=== PATIENT | female | born 1960 | race Hispanic/Latino ===

== ENCOUNTER → 2018-04-13 | Outpatient (CLI) | payer OTHER ==
--- NOTE | 2018-04-24 09:55 | Diagnostic Imaging Report ---
#[id number] - [id number] #BILATERAL DIGITAL SCREENING MAMMOGRAM WITH CAD: 04/13/2018 CLINICAL: Routine screening. Routine screening. Comparison is made to exam dated: 08/10/2012 mammogram - [facility]. Current study contains 4 films. The tissue of both breasts is predominantly fatty. Current study was also evaluated with a Computer Aided Detection (CAD) system. There is a possible 5 mm oval mass in the left breast at 7 o'clock in the retroareolar region. There is a benign calcification in the left breast. No other significant masses, calcifications, or other findings are seen in either breast. IMPRESSION: INCOMPLETE: NEEDS ADDITIONAL IMAGING EVALUATION The possible 5 mm oval mass in the left breast is indeterminate. Additional views with possible ultrasound are recommended. The patient will be contacted by the Mammography Department to schedule this appointment. Nacho Wiley Jr., D.O. cw/:04/21/2018 07:11:02 Sr Community Manager: Alicia PERES(Adam)(M), [facility] letter sent: Additional Imaging Needed Mammogram BI-RADS: 0 Indeterminate
== END ==
LOC: MAMMO 08:33
PROVIDERS: ATTEND Family Medicine
DX: Z12.31 Encounter for screening mammogram for malignant neoplasm of breast (principal)
CPT/HCPCS: 77067

== ENCOUNTER → 2018-05-04 | Outpatient (CLI) | payer OTHER ==
--- NOTE | 2018-05-04 15:43 | Diagnostic Imaging Report ---
#[id number] - [id number] #UNILATERAL LEFT DIGITAL DIAGNOSTIC MAMMOGRAM WITH SPOT COMPRESSION: 05/04/2018 Comparison is made to exams dated: 04/13/2018 mammogram and 08/10/2012 mammogram - [facility]. Current study contains 3 films. The tissue of the left breast is predominantly fatty. Focal spot compression reveals a benign appearing lymph node in the left breast. No significant masses, calcifications, or other findings are seen in the breast. There has been no significant interval change. IMPRESSION: BENIGN There is no mammographic evidence of malignancy. A 1 year screening mammogram is recommended. The patient will be notified by letter of the results. Nacho Wiley Jr., D.O. cw/:05/04/2018 14:11:50 [employer] Supervisor: Alicia PERES(R)(M), [facility] letter sent: Normal Exam Mammogram BI-RADS: 2 Benign
== END ==
LOC: MAMMO 11:37
PROVIDERS: ATTEND Family Medicine
DX: N63.20 Unspecified lump in the left breast, unspecified quadrant (principal)

== ENCOUNTER → 2021-09-15 | Day surgery (SDC) | payer BC ==
[2021-09-14 12:35] LABS: BASOPHILS # (AUTO) 0.1 (0.0-0.1); BASOPHILS % 0.8 % (0.0-1.0); EOSINOPHILS # (AUTO) 0.4 (0.0-0.4); EOSINOPHILS % 5.8 % (0.0-6.0); HEMATOCRIT 43.9 % (34.2-44.1); HEMOGLOBIN 14.2 g/dL (12.0-16.0); LYMPHOCYTES # (AUTO) 2.4 (1.0-3.2); LYMPHOCYTES % 38.1 % (18.0-39.1); MEAN CORPUSCULAR HEMOGLOBIN 29.3 pg (28-32); MEAN CORPUSCULAR HGB CONC 32.3 g/dL (31-35); MEAN CORPUSCULAR VOLUME 90.5 fL (81-99); MONOCYTES # (AUTO) 0.4 (0.2-0.8); MONOCYTES % 6.4 % (4.4-11.3); NEUTROPHILS # (AUTO) 3.1 (2.1-6.9); NEUTROPHILS % 48.7 % (38.7-80.0); PLATELET COUNT 374 x10e3/uL (140-360); RED BLOOD COUNT 4.85 x10e6/uL (3.6-5.1); RED CELL DISTRIBUTION WIDTH 13.1 % (11.7-14.4)
[2021-09-14 13:02] LABS: ALBUMIN 3.8 g/dL (3.5-5.0); ALBUMIN/GLOBULIN RATIO 1.2 (0.8-2.0); ANION GAP 13.2 mmol/L (8-16); CALCIUM 9.5 mg/dL (8.4-10.2); CREATININE, SERUM 0.81 mg/dL (0.57-1.11); POTASSIUM 4.2 mmol/L (3.5-5.1)
[2021-09-15] VITALS (9 sets, daily range): BP systolic 129–169; BP diastolic 77–91
[~2021-09-15] MED LIST: ALPRAZOLAM 0.5 MG TAB ONE; ASPIRIN 325 MG TAB ONE; ASPIRIN EC81 MG PO; ATORVASTATIN CA20 MG PO; DIPHENHYDRAMINE HCL 25 MG CAP ONE; FENTANYL CITRATE/PF 100MCG/2 ML INJ ONE; HEPARIN SOD/SOD CHLORIDE 2,000 ML ONE; IOPAMIDOL 300MG/ML 100 ML INFUS..BTL IV ONE; LIDOCAINE HCL 2% LOCAL 20 ML VIAL ONE; MIDAZOLAM HCL 2 MG/2 ML VIAL ONE; PRASUGREL 10 MG TAB ONE; SODIUM CHLORIDE 0.9% 1000ML 1,000 ML ONE; VERAPAMIL HCL 2.5 MG/ML 2 ML VIAL ONE; VITAMIN D3 PO
== END | disposition home or self-care (01) ==
LOC: CATH LAB 10:00
PROVIDERS: ATTEND Internal Medicine Interventional Cardiology
DX: I70.213 Atherosclerosis of native arteries of extremities with intermittent claudication, bilateral legs (principal); R93.6 Abnormal findings on diagnostic imaging of limbs; E78.00 Pure hypercholesterolemia, unspecified; J45.909 Unspecified asthma, uncomplicated; Z01.812 Encounter for preprocedural laboratory examination; Z20.822 Contact with and (suspected) exposure to COVID-19; Z79.82 Long term (current) use of aspirin; Z79.899 Other long term (current) drug therapy; Z68.30 Body mass index [BMI] 30.0-30.9, adult; Z86.718 Personal history of other venous thrombosis and embolism; Z82.3 Family history of stroke
CPT/HCPCS: 36415; 37186; 37225; 76937; 80053; 83880; 85025; C1724; C1760 ×2; C1769 ×3; C1887 ×2; C1894; C2623; J2001; J2250; J3010; J7030; Q9967; U0002; 75716; 99152; 99153

== ENCOUNTER → 2021-09-29 | Day surgery (SDC) | payer BC ==
[2021-09-24 09:37] LABS: BASOPHILS # (AUTO) 0.1 (0.0-0.1); BASOPHILS % 0.9 % (0.0-1.0); EOSINOPHILS # (AUTO) 0.4 (0.0-0.4); EOSINOPHILS % 5.1 % (0.0-6.0); HEMATOCRIT 41.2 % (34.2-44.1); HEMOGLOBIN 13.5 g/dL (12.0-16.0); LYMPHOCYTES # (AUTO) 2.3 (1.0-3.2); LYMPHOCYTES % 26.9 % (18.0-39.1); MEAN CORPUSCULAR HGB CONC 32.8 g/dL (31-35); MEAN CORPUSCULAR VOLUME 88.4 fL (81-99); MONOCYTES # (AUTO) 0.3 (0.2-0.8); MONOCYTES % 3.6 % (4.4-11.3); NEUTROPHILS # (AUTO) 5.3 (2.1-6.9); NEUTROPHILS % 63.3 % (38.7-80.0); PLATELET COUNT 388 x10e3/uL (140-360); RED BLOOD COUNT 4.66 x10e6/uL (3.6-5.1); RED CELL DISTRIBUTION WIDTH 13.2 % (11.7-14.4)
[2021-09-24 09:56] LABS: ALBUMIN 3.6 g/dL (3.5-5.0); ALBUMIN/GLOBULIN RATIO 1.1 (0.8-2.0); ANION GAP 13.8 mmol/L (8-16); CALCIUM 9.7 mg/dL (8.4-10.2); CREATININE, SERUM 0.86 mg/dL (0.57-1.11); POTASSIUM 3.8 mmol/L (3.5-5.1)
[~2021-09-29] VITALS: Ht 149.9 cm; Wt 68.0 kg
[2021-09-29] VITALS (9 sets, daily range): BP systolic 121–145; BP diastolic 67–88
[~2021-09-29] MED LIST changes: -ASPIRIN 325 MG TAB ONE; +HEPARIN SOD (PORCINE) 1000 UNIT/ML 30ML ONE; +NITROGLYCERIN/D5W 200 MCG/ML 250 ML ONE; +PLAVIX75 MG PO; -PRASUGREL 10 MG TAB ONE
== END | disposition home or self-care (01) ==
LOC: CATH LAB 10:17
PROVIDERS: ATTEND Internal Medicine Interventional Cardiology
DX: I70.211 Atherosclerosis of native arteries of extremities with intermittent claudication, right leg (principal)
CPT/HCPCS: 36415; 37186; 37225; 75625; 75710; 76937; 80053; 83880; 85025; C1724; C1760; C1769 ×3; C1887 ×2; C1894; C2623; J1644; J2001; J2250; J3010; J7030; Q9967; U0002; 36247; 37224; 99152; 99153

== ENCOUNTER 2021-10-07 14:26 | Emergency (ER) | payer BC ==
[~2021-10-07] VITALS: Ht 149.9 cm; Wt 68.0 kg
[~2021-10-07 14:26] MED LIST changes: -ALPRAZOLAM 0.5 MG TAB ONE; -DIPHENHYDRAMINE HCL 25 MG CAP ONE; -FENTANYL CITRATE/PF 100MCG/2 ML INJ ONE; -HEPARIN SOD (PORCINE) 1000 UNIT/ML 30ML ONE; -HEPARIN SOD/SOD CHLORIDE 2,000 ML ONE; -IOPAMIDOL 300MG/ML 100 ML INFUS..BTL IV ONE; -LIDOCAINE HCL 2% LOCAL 20 ML VIAL ONE; -MIDAZOLAM HCL 2 MG/2 ML VIAL ONE; -NITROGLYCERIN/D5W 200 MCG/ML 250 ML ONE; -SODIUM CHLORIDE 0.9% 1000ML 1,000 ML ONE; -VERAPAMIL HCL 2.5 MG/ML 2 ML VIAL ONE
[2021-10-07 14:56] LABS: BASOPHILS # (AUTO) 0.1 (0.0-0.1); BASOPHILS % 0.8 % (0.0-1.0); EOSINOPHILS # (AUTO) 0.6 (0.0-0.4); EOSINOPHILS % 6.7 % (0.0-6.0); HEMATOCRIT 37.6 % (34.2-44.1); LYMPHOCYTES % 31.8 % (18.0-39.1); MEAN CORPUSCULAR HEMOGLOBIN 29.1 pg (28-32); MEAN CORPUSCULAR HGB CONC 31.9 g/dL (31-35); MEAN CORPUSCULAR VOLUME 91.3 fL (81-99); MONOCYTES # (AUTO) 0.6 (0.2-0.8); MONOCYTES % 6.3 % (4.4-11.3); NEUTROPHILS # (AUTO) 5.1 (2.1-6.9); NEUTROPHILS % 54.1 % (38.7-80.0); PLATELET COUNT 443 x10e3/uL (140-360); RED BLOOD COUNT 4.12 x10e6/uL (3.6-5.1); RED CELL DISTRIBUTION WIDTH 13.5 % (11.7-14.4)
[2021-10-07 15:03] LABS: INR 0.87; PROTHROMBIN TIME 12.5 seconds (11.9-14.5)
[2021-10-07 15:12] LABS: ALBUMIN 3.8 g/dL (3.5-5.0); ALBUMIN/GLOBULIN RATIO 1.1 (0.8-2.0); ANION GAP 13.6 mmol/L (8-16); CALCIUM 9.2 mg/dL (8.4-10.2); CREATININE, SERUM 0.79 mg/dL (0.57-1.11); POTASSIUM 3.6 mmol/L (3.5-5.1)
[2021-10-07] MEDS ORDERED: IOPAMIDOL 370 MG/ML 200 ML INFUS..BTL INJ ONE (16:49)
[2021-10-07] MEDS ORDERED: SODIUM CHLORIDE 0.9% 100 ML ONE (16:49)
[2021-10-07 17:29] VITALS: BP 148/82
== END 2021-10-07 17:30 | disposition home or self-care (01) ==
LOC: ER 14:50
DX: S30.1XXA Contusion of abdominal wall, initial encounter (principal); I73.9 Peripheral vascular disease, unspecified; X58.XXXA Exposure to other specified factors, initial encounter; Z98.62 Peripheral vascular angioplasty status; Z79.02 Long term (current) use of antithrombotics/antiplatelets; Z79.82 Long term (current) use of aspirin
CPT/HCPCS: 36415; 73706; 80053; 85025; 85610; 93005; 99284; J7050; Q9967

== ENCOUNTER 2023-02-11 11:00 | Outpatient (RCR) | payer BC | END 2023-02-13 | LOC: PT 11:00 | PROVIDERS: ATTEND Physician Assistant | DX: S52.592A Other fractures of lower end of left radius, initial encounter for closed fracture (principal) ==

== ENCOUNTER → 2025-05-24 | Outpatient (REF) | payer MEDICARE ==
[~2025-05-24] MED LIST changes: +AMOXICILLIN PO; +CLOPIDOGREL75 MG PO; +LOSARTAN POTASS25 MG PO; +ROSUVASTATIN CA20 MG PO
== END ==
LOC: CT 14:15
PROVIDERS: ATTEND Family Medicine
DX: M79.672 Pain in left foot (principal)

== ENCOUNTER 2025-06-06 07:48 | Day surgery (SDC) | payer MEDICARE ==
[2025-06-04 12:22] LABS: BASOPHILS % 0.7 % (0.0-1.0); EOSINOPHILS % 2.3 % (0.0-6.0); LYMPHOCYTES % 32.0 % (18.0-39.1); MONOCYTES % 5.4 % (4.4-11.3); NEUTROPHILS % 59.5 % (38.7-80.0); RED CELL DISTRIBUTION WIDTH 14.5 % (11.7-14.4)
[2025-06-04 13:24] LABS: INR 0.83
[2025-06-04 13:37] LABS: EST GLOMERULAR FILTRATION RATE 74.0 ML/MIN (>=60)
[~2025-06-06] VITALS: Ht 149.9 cm; Wt 70.3 kg
[2025-06-06] VITALS (9 sets, daily range): BP systolic 112–167; BP diastolic 52–86; PULSE 61–71; RESP 10–19; TEMP 96–97.3; O2SAT 100
[2025-06-06] MEDS ORDERED: VERAPAMIL HCL 2.5 MG/ML 2 ML VIAL ONE (10:42)
[2025-06-06] MEDS ORDERED: NITROGLYCERIN/D5W 200 MCG/ML 250 ML ONE (10:43)
[2025-06-06] MEDS ORDERED: IOPAMIDOL 370 MG/ML 100 ML INFUS..BTL INJ ONE (10:43)
[2025-06-06] MEDS ORDERED: SODIUM CHLORIDE 0.9% 1000ML 2,000 ML ONE (10:43)
[2025-06-06] MEDS ORDERED: LIDOCAINE HCL 2% LOCAL 20 ML VIAL ONE (10:43)
[2025-06-06] MEDS ORDERED: HEPARIN SOD/SOD CHLORIDE 2,000 ML ONE (10:43)
[2025-06-06] MEDS: DIPHENHYDRAMINE HCL INJ 50 MG/ML VIAL ONE (10:59)
[2025-06-06] MEDS: METHYLPREDNISOLONE SOD SUCC 125 MG/2ML VIAL ONE (10:59)
[2025-06-06] MEDS: FAMOTIDINE 20 MG/2 ML VIAL IV ONE (11:00)
[2025-06-06] MEDS ORDERED: MIDAZOLAM HCL 2 MG/2 ML VIAL ONE (11:03)
[2025-06-06] MEDS ORDERED: FENTANYL CITRATE/PF 100MCG/2 ML INJ ONE (11:03)
[2025-06-06] MEDS ORDERED: BIVALRIUDIN 250 MG/VIAL VIAL IV ONE (14:54)
== END 2025-06-06 14:30 | disposition home or self-care (01) ==
LOC: CATH LAB 07:48
PROVIDERS: ATTEND Internal Medicine Cardiovascular Disease
DX: I70.203 Unspecified atherosclerosis of native arteries of extremities, bilateral legs (principal); Z95.820 Peripheral vascular angioplasty status with implants and grafts; I10 Essential (primary) hypertension; E78.2 Mixed hyperlipidemia; R94.31 Abnormal electrocardiogram [ECG] [EKG]; I65.23 Occlusion and stenosis of bilateral carotid arteries; J45.909 Unspecified asthma, uncomplicated; Z01.812 Encounter for preprocedural laboratory examination; Z79.02 Long term (current) use of antithrombotics/antiplatelets; Z79.82 Long term (current) use of aspirin; Z79.899 Other long term (current) drug therapy; Z68.31 Body mass index [BMI] 31.0-31.9, adult; Z86.718 Personal history of other venous thrombosis and embolism; Z82.3 Family history of stroke
CPT/HCPCS: 36246; 36415; 75625; 75710; 76937; 80053; 85025; 85610; C1760; C1769; C1894; J0583; J1200; J1308; J2003; J2250; J2919; J3010; J7030; Q9967; 36245; 99152